=== PATIENT | female | born 1975 | race Two or more races ===

== ENCOUNTER 2020-10-06 13:36 | Emergency (ER) | payer OTHER ==
[~2020-10-06] VITALS: Ht 177.8 cm; Wt 79.4 kg
[2020-10-06] MEDS ORDERED: CHILDREN'S ASPI81 MG PO (13:53)
[2020-10-06] MEDS ORDERED: NAPROXEN375 MG PO (18:41)
[2020-10-06] MEDS ORDERED: SKELAXIN800 MG PO (18:41)
== END 2020-10-06 18:46 | disposition home or self-care (01) ==
LOC: ER 13:36
DX: R07.89 Other chest pain (principal)